=== PATIENT | female | born 1965 | race Caucasian/White ===

== ENCOUNTER → 2016-07-09 | Outpatient (CLI) | payer OTHER ==
[~2016-07-09] MED LIST: ALBUTEROL SULF8.5 GM IH; ASCORBIC ACID250 MG PO; COZAAR50 MG PO; ECOTRIN325 MG PO; GLUCOPHAGE500 MG PO; MOTRIN IB200 MG PO; PRAVACHOL40 MG PO; PRILOSEC40 MG PO; SYMBICORT60 INHALAT IH; UNABLEOBTAIN; VITAMIN D1000 INTUN PO; ZETIA10 MG PO
== END | disposition home or self-care (01) ==
LOC: OPR 07-06 09:00 → EDSTATUS 09:00 → OPR 09:00
PROC: 0G9G3ZX Drainage of Left Thyroid Gland Lobe, Percutaneous Approach, Diagnostic (ICD-10-PCS; principal; 2016-07-09)
DX: E04.1 Nontoxic single thyroid nodule (principal); Z87.891 Personal history of nicotine dependence; Z82.49 Family history of ischemic heart disease and other diseases of the circulatory system; Z82.5 Family history of asthma and other chronic lower respiratory diseases; Z83.3 Family history of diabetes mellitus; Z80.0 Family history of malignant neoplasm of digestive organs
CPT/HCPCS: 76942; 88173; J2250; J2310; J3010; Q0169